=== PATIENT | male | born 1955 | race Caucasian/White ===

== ENCOUNTER 2021-03-09 21:17 | Emergency (ER) | payer BC, OTHER ==
[~2021-03-09] VITALS: Ht 177.8 cm; Wt 83.9 kg
[~2021-03-09 21:17] MED LIST: MULTIVITAMINS; NORCO 5-325 TA1 EACH PO; SENOKOT-S1 TA1 PO
[2021-03-09 21:36] VITALS: BP 113/77
[2021-03-09] MEDS ORDERED: ROSUVASTATIN CA20 MG PO (21:41)
[2021-03-09] MEDS ORDERED: VIAGRA25 MG PO (21:42)
== END 2021-03-09 23:45 | disposition home or self-care (01) ==
LOC: ER 21:17
DX: M20.022 Boutonniere deformity of left finger(s) (principal); S62.623A Displaced fracture of middle phalanx of left middle finger, initial encounter for closed fracture; W22.8XXA Striking against or struck by other objects, initial encounter; Y93.89 Activity, other specified; Y92.89 Other specified places as the place of occurrence of the external cause; Y99.8 Other external cause status